=== PATIENT | female | born 1955 | race Caucasian/White ===

== ENCOUNTER → 2017-08-20 | Outpatient (CLI) | payer BC ==
[~2017-08-20] MED LIST: ANUSOL HC25 MG/SUPP RC; CALCIUM1 CAP PO; CELEXA20 MG PO; FISH OIL1 IU PO; MELOXICAM PO; MELOXICAM15 MG PO; METRONIDAZOLE500 MG PO; MULTIPLE VITAMI1 CAP PO; SYNTHROID0.1 MG PO; [UNRECOGNIZED DRUG - REMARK]
== END ==
LOC: MC.RAD 11:32
DX: Z12.31 Encounter for screening mammogram for malignant neoplasm of breast (principal)

== ENCOUNTER → 2017-12-25 | Outpatient (CLI) | payer BC | LOC: COL.RAD 09:06 | DX: M19.071 Primary osteoarthritis, right ankle and foot (principal); M89.8X7 Other specified disorders of bone, ankle and foot; S93.491A Sprain of other ligament of right ankle, initial encounter; S93.411A Sprain of calcaneofibular ligament of right ankle, initial encounter ==

== ENCOUNTER → 2019-01-07 | Outpatient (CLI) | payer BC | LOC: MC.RAD 09:57 | DX: Z12.31 Encounter for screening mammogram for malignant neoplasm of breast (principal) ==

== ENCOUNTER → 2020-01-16 | Outpatient (CLI) | payer BC | LOC: MC.RAD 11:19 | DX: Z12.31 Encounter for screening mammogram for malignant neoplasm of breast (principal) ==

== ENCOUNTER → 2020-04-11 | Outpatient (CLI) | payer BC | LOC: COL.RAD 11:20 | DX: I70.0 Atherosclerosis of aorta (principal); I72.8 Aneurysm of other specified arteries; M79.89 Other specified soft tissue disorders | CPT/HCPCS: Q9967 ==

== ENCOUNTER → 2020-09-25 | Outpatient (CLI) | payer BC | LOC: COL.RAD 10:43 | DX: J18.9 Pneumonia, unspecified organism (principal); R59.0 Localized enlarged lymph nodes | CPT/HCPCS: Q9967 ==

== ENCOUNTER → 2021-07-01 | Outpatient (CLI) | payer MEDICARE | LOC: COL.RAD 09:56 | DX: Z01.812 Encounter for preprocedural laboratory examination (principal); Z00.00 Encounter for general adult medical examination without abnormal findings; I72.8 Aneurysm of other specified arteries; M47.816 Spondylosis without myelopathy or radiculopathy, lumbar region; Z98.890 Other specified postprocedural states | CPT/HCPCS: Q9967 ==